=== PATIENT | male | born 1980 | race Caucasian/White ===

== ENCOUNTER 2018-11-22 20:00 | Emergency (ER) | payer OTHER ==
--- NOTE | 2018-11-22 20:09 | NUR ---
COOK VACUUM KETTLE: PT DOES NOT WANT TO BE SEEN, HE REPORTS HE IS FEELING BETTER
== END 2018-11-22 20:11 | disposition left against medical advice (07) ==
LOC: ED 20:05
DX: R00.0 Tachycardia, unspecified (principal); Z53.21 Procedure and treatment not carried out due to patient leaving prior to being seen by health care provider

== ENCOUNTER 2019-01-04 06:25 | Day surgery (SDC) | payer OTHER ==
[2019-01-03 08:34] LABS: BASOPHILS # (AUTO) 0.03 x10^3/uL (0-0.1); BASOPHILS % (AUTO) 0 % (0-1); EOSINOPHILS # (AUTO) 0.15 x10^3/uL (0-0.4); EOSINOPHILS % (AUTO) 2 % (1-7); LYMPHOCYTES # (AUTO) 2.39 x10^3/uL (1-3.4); LYMPHOCYTES % (AUTO) 29 % (22-44); MD NO; MEAN CORPUSCULAR HEMOGLOBIN 29.7 pg (27.5-34.5); MEAN CORPUSCULAR HGB CONC 33.3 g/dL (33.2-36.2); MEAN CORPUSCULAR VOLUME 89.3 fL (81-97); MEAN PLATELET VOLUME 7.7 fL (7.4-10.4); MONOCYTES # (AUTO) 0.76 x10^3/uL (0.2-0.8); MONOCYTES % (AUTO) 9 % (2-9); NEUTROPHILS # (AUTO) 5.03 x10^3/uL (1.8-6.8); NEUTROPHILS % (AUTO) 60 % (42-75); PLATELET COUNT 251 x10^3/uL (130-400); RED BLOOD COUNT 5.31 x10^6/uL (4.38-5.82); RED CELL DISTRIBUTION WIDTH 12.6 % (9.4-14.8)
[2019-01-03 08:48] LABS: ALANINE AMINOTRANSFERASE 38 U/L (12-78); ANION GAP 4 mmol/L (5-15); CALCIUM 9.1 mg/dL (8.5-10.1); CHLORIDE 108 mmol/L (98-107); CREATININE 0.95 mg/dL (0.7-1.3)
[2019-01-03 08:51] LABS: ALKALINE PHOSPHATASE 83 U/L (45-117); BILIRUBIN,TOTAL 0.2 mg/dL (0.2-1.0); TOTAL PROTEIN 7.1 g/dL (6.4-8.2)
[~2019-01-04] VITALS: Ht 180.3 cm; Wt 85.0 kg
[2019-01-04] MEDS ORDERED: SODIUM CHLORIDE 0.9% 1,000 ML IV SCH (06:56)
[2019-01-04] MEDS ORDERED: METO25TA35 PO (07:27)
[2019-01-04] MEDS ORDERED: MIDAZOLAM 1 MG/ML, 5ML ONE ×2 (07:53→08:15)
[2019-01-04] MEDS ORDERED: ISOPROTERENOL 0.2MG/ML, 5ML ONE (07:53)
[2019-01-04] MEDS ORDERED: ADENOSINE 6 MG/2 ML ONE (07:53)
[2019-01-04] MEDS ORDERED: LIDOCAINE 1%, 20ML ONE (07:53)
[2019-01-04] MEDS ORDERED: FENTANYL PF 250 MCG/5ML ONE (07:53)
[2019-01-04] MEDS ORDERED: FENTANYL PF 100 MCG/2ML ONE (08:15)
[2019-01-04] MEDS ORDERED: ACETAMINOPHEN 325 MG TABLET PO PRN (10:00)
[2019-01-04] MEDS ORDERED: ACETAMINOPHEN 325 MG TABLET ONE (10:27)
== END 2019-01-04 14:10 | disposition home or self-care (01) ==
LOC: CACL 06:25
PROVIDERS: ATTEND Internal Medicine Cardiovascular Disease
DX: I47.1 Supraventricular tachycardia (principal); E78.5 Hyperlipidemia, unspecified
CPT/HCPCS: 36415; 71046; 80053; 85025; 86850; 86870; 86900; 86922; 93613; 93623; 93653; C1730; C1894; C2630; J2250; J3010; 86923; J0153